=== PATIENT | male | born 1950 | race Caucasian/White ===

== ENCOUNTER 2018-04-28 10:23 | Inpatient (IN) | payer OTHER ==
[2018-04-28 10:40] VITALS: BMI 34.5
[2018-04-28] MEDS ORDERED: ASPIRIN 81 MG CHEWABLE TABLETS PO ONE (11:18)
[2018-04-28] MEDS ORDERED: dilTIAZem HCL 50 MG/10 ML - 10 ML VIAL IVPUSH ONE (11:26)
--- NOTE | 2018-04-28 11:27 | PDOC ---
History of Present Illness - General History Source: Patient Exam Limitations: No Limitations - History of Present Illness Initial Comments: 04/28/18 12:50 The patient is a 67-year-old male, with a past medical history of A-fib (on Eliquis), HTN, HLD, NIDDM, GOUT, GERD, CKD, EVANS, chronic back pain, anxiety, and depression, who presents to the ED with 1 week of left-sided chest pain and progressively worsening shortness of breath on exertion. He describes the pain as pinching in sensation, 8/10 in severity, radiating up to the right side of his neck, and accompanied by palpitations that last for 1 minute before resolving on their own. The patient visited Dr. Colon office last week and his metoprolol and diltiazem were up titrated and he was started on amiodarone. He had an echocardiogram yesterday in Dr. Colon office that showed increased RV pressure and size. Dr. Castillo advised the patient to report to the ED to rule out possible PE. The patient denies any recent travel or sick contacts. He denies any recent strenuous activity or trauma. He also reports that he experiencing nasal congestion, headache, dizziness, lower extremity swelling, and abdominal distension. The patient denies any fever, chills, cough, nausea, vomiting, diarrhea, or abdominal pain. He denies any urinary symptoms. Allergies: morphine. Social History: Former smoker (quit 15 years ago). Surgical History: Cardiac catheterization, back surgery, knee surgery. Family History: [place] (Father and Brother). PCP: Dr. Leslie Jacobsen Digital Cartographer: Dr. Castillo <Mila Davey - Last Filed: 04/28/18 12:51> - General History Source: Patient Exam Limitations: No Limitations <Laina English - Last Filed: 04/28/18 14:30> - General Chief Complaint: Chest Pain Stated Complaint: CHEST PAIN Time Seen by Provider: 04/28/18 10:47 Past History <Mila Davey - Last Filed: 04/28/18 12:51> - Past Medical History Cardiac Disorders: Yes COPD: No HTN: Yes - Suicide/Smoking/Psychosocial Hx Smoking History: Former smoker Have you smoked in the past 12 months: No If you are a former smoker, when did you quit?: 2002 Information on smoking cessation initiated: No Hx Alcohol Use: No Drug/Substance Use Hx: No <Laina English - Last Filed: 04/28/18 14:30> - Past Medical History Allergies/Adverse Reactions: Allergies Allergy/AdvReac Type Severity Reaction Status Date / Time morphine Allergy Verified 04/28/18 10:36 Home Medications: Ambulatory Orders Allopurinol 300 mg PO DAILY 04/28/18 Amiodarone HCl 200 mg PO BID 04/28/18 Apixaban [Eliquis] 5 mg PO BID 04/28/18 Atorvastatin Calcium 20 mg PO DAILY 04/28/18 Cartia Xt 180 mg PO BID 04/28/18 Desvenlafaxine Succinate [Pristiq] 50 mg PO DAILY 04/28/18 Gemfibrozil 600 mg PO BID 04/28/18 Glipizide 10 mg PO BID 04/28/18 LORazepam [Ativan] 0.5 mg PO TID 04/28/18 Metoprolol Succinate 25 mg PO DAILY 04/28/18 Pregabalin [Lyrica -] 50 mg PO BID 04/28/18 Sitagliptin Phosphate [Januvia] 50 mg PO DAILY 04/28/18 Zolpidem Tartrate [Ambien] 10 mg PO HS 04/28/18 Review of Systems - Review of Systems Able to Perform ROS?: Yes Comments:: 04/28/18 12:50 GENERAL/CONSTITUTIONAL: No fever or chills. No weakness. no sweats. HEAD, EYES, EARS, NOSE AND THROAT: (+)Nasal congestion. No change in vision or hearing. No ear pain or discharge. No sore throat or mouth pain. No difficulty swallowing. CARDIOVASCULAR: (+)chest pain, palpitations, B/L LE swelling, dizziness. No syncope. RESPIRATORY: (+)SOB. No cough, wheezing, or hemoptysis. GASTROINTESTINAL (+)Abdominal distention. No nausea/vomiting. No diarrhea or constipation. No bloody stools. GENITOURINARY: No hematuria, dysuria, frequency, urgency or other changes. MUSCULOSKELETAL: No joint swelling or pain. No neck or back pain. SKIN: No rash or changes in skin color or lesions. NEUROLOGIC: (+)Headache. No vertigo, loss of consciousness, or change in strength/sensation. No gait instability. HEMATOLOGIC/LYMPHATIC: No anemia, easy bruising/bleeding, or history of blood clots. ALLERGIC/IMMUNOLOGIC: No allergies All other systems reviewed and negative, or as documented in HPI. <Mila Davey - Last Filed: 04/28/18 12:51> *Physical Exam - Vital Signs Last Vital Signs Temp Pulse Resp BP Pulse Ox 98.5 F 117 H 20 137/84 94 L 04/28/18 10:36 04/28/18 11:20 04/28/18 11:20 04/28/18 11:20 04/28/18 11:20 - Physical Exam Comments: 04/28/18 12:50 General: Well appearing, awake and alert, NAD. HEENT: NCAT, PERRL, EOMI, clear conjunctiva, anicteric, moist mucus membranes, clear oropharynx, no oral lesions.. Neck: neck supple, FROM. No JVD. Resp: (+)Bibasilar crackles. Lungs other zhou clear, no respiratory distress. CVS: (+)Irregularly irregular. No murmurs, 2+ peripheral pulses throughout, no peripheral edema Abdomen:(+)Mild abdominal distension. Soft, NT, no peritoneal signs. Back: nontender, normal inspection and ROM MSK: (+)1+ pitting edema bilaterally. CHANDRA x4, ROM intact. No clubbing or cyanosis. normal bulk and tone. Neuro: alert, oriented appropriately; no focal neurologic deficits. Skin: warm and well perfused, cap refill <2 sec, normal color <Mila Davey - Last Filed: 04/28/18 12:51> - Vital Signs Last Vital Signs Temp Pulse Resp BP Pulse Ox 98.5 F 112 H 16 132/62 99 04/28/18 10:36 04/28/18 10:36 04/28/18 10:36 04/28/18 10:36 04/28/18 10:36 <Laina English - Last Filed: 04/28/18 14:30> Procedures - Bedside Ultrasound Bedside Ultrasound: Cardiac Remarks: 04/28/18 12:48 POCUS echo and thoracic exam by me: indication includes chest pain/dyspnea. views obtained (PSLA, PSS, A4, SX, IVC) and thoracic lung hale. Findings include normal EF, no pericardial or pleural effusion, primarily A lines, normal IVC with inspiratory collapse. Normal aortic root <4cm. RV<LV. Impression : no acute findings. <Laina English - Last Filed: 04/28/18 14:30> ED Treatment Course - LABORATORY CBC & Chemistry Diagram: 04/28/18 11:13 04/28/18 11:13 - ADDITIONAL ORDERS Additional order review: Laboratory Results 04/28/18 04/28/18 11:13 11:13 Sodium 138 Potassium 4.3 Chloride 104 Carbon Dioxide 24 Anion Gap 9 BUN 21 H Creatinine 1.3 Creat Clearance w eGFR 54.90 Random Glucose 126 H Calcium 8.7 Total Bilirubin 0.4 AST 15 ALT 17 Alkaline Phosphatase 116 Troponin I < 0.02 B-Natriuretic Peptide 894.6 H Total Protein 6.6 Albumin 3.5 TSH 6.72 H 04/28/18 11:13 RBC 4.62 MCV 88.8 MCHC 33.0 RDW 15.1 MPV 8.0 Neutrophils % 65.2 Lymphocytes % 23.0 Monocytes % 7.7 Eosinophils % 2.9 Basophils % 1.2 - Medications Given in the ED: ED Medications Discontinued Medications Generic Name Dose Route Start Last Admin Trade Name Freq PRN Reason Stop Dose Admin Aspirin 324 mg 04/28/18 11:18 04/28/18 12:21 Asa - PO 04/28/18 11:19 324 mg ONCE ONE Administration Diltiazem HCl 10 mg 04/28/18 11:26 04/28/18 12:14 Cardizem Injection - IVPUSH 04/28/18 11:27 10 mg ONCE ONE Administration <Mila Davey - Last Filed: 04/28/18 12:51> - LABORATORY CBC & Chemistry Diagram: 04/28/18 11:13 04/28/18 11:13 - RADIOLOGY Radiology Studies Ordered: Category Date Time Status CHEST PA & LAT [RAD] Stat Radiology 04/28/18 10:48 Ordered <Laina English - Last Filed: 04/28/18 14:30> Medical Decision Making - Medical Decision Making 04/28/18 12:42 Johny Donovan 67 YOM with h/o Afib on Eliquis, HTN, HLD, Gout, Gerd, NIDDM , CKD, EVANS, chronic back pain, anxiety and depression presenting with chest pain x 1 week a/w palpitations lasting several minutes and progressive SOB with mild exertion. had uptitration of BB and CCB this week, started on Amiodarone as well. Echo yesterday with normal EF and dilated RV. Vital signs reviewed, wnl. notable for Afib and RVR with rate ~112 bpm. Medical Plan: CBC, CMP, ECG, trops/card panel, BNP, CXR, CT angio chest, POCUS echo and thoracic exam Prior notes reviewed, including admissions, discharges and consultations. laboratory results and imaging reviewed, basic labs and lytes wnl, notable for neg trop, indeterminate BNP, TSH mildly elevated. EKG Afib RVR at 115 bpm. ED course: given diltiazem IV with rate control <110, ASA. trop neg, so reassuring. POCUS echo and thoracic exam by me: indication includes chest pain/dyspnea. views obtained (PSLA, PSS, A4, SX, IVC) and thoracic lung hale. Findings include normal EF, no pericardial or pleural effusion, primarily A lines, normal IVC with inspiratory collapse. Normal aortic root <4cm. RV<LV. Impression : no acute findings. spoke with Dr. Castillo with recent echo and plan. CT chest angio to r/o PE given recurrence of Afib, already on AC, but could be failing therapy. in meantime, goal of rate control of Afib RVR. also RUQ sono to r/o ascites. - CT angio neg for PE, chronic lung disease, no cardiomegaly, no effusion. Dispo: Admit to telemetry for Afib RVR, rate controlled.. Discussed results and management plan with pt and family member at bedside, agree with impression and plan spoke and s/o to Dr. Delaney carton folder for Dr. Jacobsen. 04/28/18 14:26 <Laina English - Last Filed: 04/28/18 14:30> *DC/Admit/Observation/Transfer - Attestations Scribe Attestion: 04/28/18 12:51 Documentation prepared by Mila Davey, acting as medical communication specialist for Laina English MD. <Mila Davey - Last Filed: 04/28/18 12:51> - Discharge Dispostion Decision to Admit order: Yes Decision to Admit order Date/Time: 04/28/18 12:45 Decision to Admit Order Category Date Time Status Decision to Admit to Hospital Routine Admission 04/28/18 12:41 Active - Attestations Physician Attestion: 04/28/18 14:30 I, Laina English MD, attest that this document has been prepared under my direction and personally reviewed by me in its entirety. I further attest, that it accurately reflects all work, treatment, procedures and medical decision -making performed by me. <Laina English - Last Filed: 04/28/18 14:30> Diagnosis at time of Disposition: Atrial fibrillation with RVR - Discharge Dispostion Condition at time of disposition: Guarded
[2018-04-28 11:29] LABS: BASO % 1.2 % (0-2.0); EOS % 2.9 % (0-4.5); HEMATOCRIT 41.1 % (35.4-49); HEMOGLOBIN 13.6 GM/dL (11.7-16.9); MCH 29.4 pg (25.7-33.7); MEAN CELL VOLUME 88.8 fl (80-96); MONO % 7.7 % (3.8-10.2); NEUT % 65.2 % (42.8-82.8); PLATELET COUNT 377 K/MM3 (134-434); RBC 4.62 M/mm3 (4.00-5.60); RDW 15.1 % (11.9-15.9); WHITE BLOOD COUNT 9.6 K/mm3 (4.0-10.0)
[2018-04-28] MEDS ORDERED: dilTIAZem HCL 125 MG/25 ML - 25 ML VIAL ONE (12:07)
[2018-04-28] MEDS ORDERED: ASPIRIN 81 MG CHEWABLE TABLETS ONE (12:07)
[2018-04-28 12:27] LABS: ALBUMIN 3.5 g/dl (3.4-5.0); ALK PHOS 116 U/L (45-117); ANION GAP 9 MMOL/L (8-16); BILIRUBIN,TOTAL 0.4 mg/dL (0.2-1); BLOOD UREA NITROGEN 21 mg/dL (7-18); CALCIUM 8.7 mg/dL (8.5-10.1); CHLORIDE 104 mmol/L (98-107); CO2 24 mmol/L (21-32); CREATININE 1.3 mg/dL (0.55-1.3); GLUCOSE,RANDOM 126 mg/dL (74-106); POTASSIUM 4.3 mmol/L (3.5-5.1); SGOT/AST 15 U/L (15-37); SGPT/ALT 17 U/L (13-61); SODIUM 138 mmol/L (136-145); TOT PROT 6.6 g/dl (6.4-8.2)
[2018-04-28] MEDS ORDERED: LORazepam 0.5 MG TABLET PO PRN (12:44)
--- NOTE | 2018-04-28 13:15 | HP ---
Admitting History and Physical - Primary Care Physician PCP: Leslie Jacobsen - Admission Chief Complaint: Rapid afib History of Present Illness: er history 04/28/18 12:50 The patient is a 67-year-old male, with a past medical history of A-fib (on Eliquis), HTN, HLD, NIDDM, GOUT, GERD, CKD, EVANS, chronic back pain, anxiety, and depression, who presents to the ED with 1 week of left-sided chest pain and progressively worsening shortness of breath on exertion. He describes the pain as pinching in sensation, 8/10 in severity, radiating up to the right side of his neck, and accompanied by palpitations that last for 1 minute before resolving on their own. The patient visited Dr. Colon office last week and his metoprolol and diltiazem were up titrated and he was started on amiodarone. He had an echocardiogram yesterday in Dr. Colon office that showed increased RV pressure and size. Dr. Castillo advised the patient to report to the ED to rule out possible PE. The patient denies any recent travel or sick contacts. He denies any recent strenuous activity or trauma. He also reports that he experiencing nasal congestion, headache, dizziness, lower extremity swelling, and abdominal distension. The patient denies any fever, chills, cough, nausea, vomiting, diarrhea, or abdominal pain. He denies any urinary symptoms. pt examined Sent for rapid Afib Was being managed by Financial Analysis Advisor for controlling rate. Received cardizmem iv push in ER abd metoprolol History Source: Patient - Past Medical History Cardiovascular: Yes: AFIB, HTN, Hyperlipdemia Endocrine: Yes: Diabetes Mellitus - Smoking History Smoking history: Former smoker Have you smoked in the past 12 months: No If you are a former smoker, when did you quit?: 2002 - Alcohol/Substance Use Hx Alcohol Use: No Home Medications - Allergies Allergies/Adverse Reactions: Allergies Allergy/AdvReac Type Severity Reaction Status Date / Time morphine Allergy Verified 04/28/18 10:36 - Home Medications Home Medications: Ambulatory Orders Allopurinol 300 mg PO DAILY 04/28/18 Amiodarone HCl 200 mg PO BID 04/28/18 Apixaban [Eliquis] 5 mg PO BID 04/28/18 Atorvastatin Calcium 20 mg PO DAILY 04/28/18 Cartia Xt 180 mg PO BID 04/28/18 Desvenlafaxine Succinate [Pristiq] 50 mg PO DAILY 04/28/18 Gemfibrozil 600 mg PO BID 04/28/18 Glipizide 10 mg PO BID 04/28/18 LORazepam [Ativan] 0.5 mg PO TID 04/28/18 Metoprolol Succinate 25 mg PO DAILY 04/28/18 Pregabalin [Lyrica -] 50 mg PO BID 04/28/18 Sitagliptin Phosphate [Januvia] 50 mg PO DAILY 04/28/18 Zolpidem Tartrate [Ambien] 10 mg PO HS 04/28/18 Review of Systems - Review of Systems Constitutional: denies: Chills, Fever Cardiovascular: reports: Chest Pain, Palpitations Physical Examination Vital Signs: Vital Signs Temperature 98.5 F 04/28/18 10:36 Pulse Rate 117 H 04/28/18 11:20 Respiratory Rate 20 04/28/18 11:20 Blood Pressure 137/84 04/28/18 11:20 O2 Sat by Pulse Oximetry (%) 94 L 04/28/18 11:20 Constitutional: Yes: No Distress, Calm Cardiovascular: Yes: Pulse Irregular Respiratory: Yes: Diminished Gastrointestinal: Yes: Normal Bowel Sounds, Soft. No: Tenderness Edema: No Neurological: Yes: WNL Labs: CBC, BMP 04/28/18 11:13 04/28/18 11:13 Imaging - Results Chest X-ray: Image Reviewed (no infiltrate) EKG: Image Reviewed (Rapid Afib) Problem List - Problems (1) Atrial fibrillation with RVR Code(s): I48.91 - UNSPECIFIED ATRIAL FIBRILLATION (2) Diabetes mellitus Code(s): E11.9 - TYPE 2 DIABETES MELLITUS WITHOUT COMPLICATIONS (3) HTN (hypertension) Code(s): I10 - ESSENTIAL (PRIMARY) HYPERTENSION (4) Hyperlipidemia Code(s): E78.5 - HYPERLIPIDEMIA, UNSPECIFIED Assessment/Plan PLAN Admit to Telemetry Rate to be controlled with Lopressor and cardizem\ CTA chest done-- results pending Cardiology eval continue with meds check BGM Pt is on Eliquis for Afib
--- NOTE | 2018-04-28 13:21 | EKG ---
Test Reason : Blood Pressure : / mmHG Vent. Rate : 110 BPM Atrial Rate : 150 BPM P-R Int : 000 ms QRS Dur : 086 ms QT Int : 302 ms P-R-T Axes : 000 024 114 degrees QTc Int : 408 ms ATRIAL FIBRILLATION WITH RAPID VENTRICULAR RESPONSE NONSPECIFIC ST AND T WAVE ABNORMALITY ABNORMAL ECG WHEN COMPARED WITH ECG OF 12-AUG-2004 15:01, ATRIAL FIBRILLATION HAS REPLACED SINUS RHYTHM NONSPECIFIC T WAVE ABNORMALITY NOW EVIDENT IN ANTERIOR LEADS Confirmed by TRAN VIZCAINO, LANEY ([id number]) on 04/28/2018 1:21:19 PM Referred By: Confirmed By:LANEY MAYFIELD MD
[2018-04-28 14:10] LABS: ACANTHOCYTES 0; ANISOCYTOSIS 0; HELMET CELLS 0; HOWELL-JOLLY BODIES 0; MACROCYTOSIS 0; OVALOCYTE 0; PLATELET ESTIMATE NORMAL; ROULEAU 0; SICKELED CELLS 0; TARGET CELLS 0; TEAR DROP CELLS 0; TOXIC GRANULATION 0
--- NOTE | 2018-04-28 14:42 | CON.CARD ---
Consult Consult Specialty:: cardiology Referred by:: Tere Delaney - History of Present Illness History of Present Illness: 67 year old male with history of NIDDM, hypertension, HCVD, dyslipidemia, chest pain syndrome, recent onset of atrial fibrillation with rapid ventricular response, hyperuracemia, obstructive sleep apnea syndrome, awaiting titration study and gastroesophageal reflux disease. Patient was seen in the office on 04/27/18 and complained of increasing exertional dyspnea walking short distances, climbing a flight of stairs. No history of PND or orthopnea. Dyspnea was at times accompanied by lightheadedness , no history of presyncope or syncope. Recent episode of exertional of chest tightness relieved by sublingual nitroglycerin. No history of recent cough or expectoration. Patient continued to have a rapid ventricular response and was advised to come to the ER for further evaluation. PAST HISTORY: 1. As per history of present illness. SURGICAL HISTORY: 1. Status post tonsillectomy. 2. Status post bilateral cateract extraction. 3. Status post surgery on the right knee. 4. Status post back surgery. SOCIAL HISTORY: , disabled, has two daughters and three step children. FAMILY HISTORY: Father in late 50s of a myocardial infarction. Mother in her 50s of a brain tumor. Had three brothers, all of them are . ALLERGIES: 1. Morphine (urticaria) Active Medications Allopurinol (Zyloprim -) 300 mg PO DAILY [facility] Amiodarone HCl (Cordarone -) 200 mg PO BID [facility] Apixaban (Eliquis -) 5 mg PO BID [facility] Atorvastatin Calcium (Lipitor -) 20 mg PO HS [facility] Diltiazem HCl (Cardizem Cd -) 180 mg PO BID [facility] Gemfibrozil (Lopid -) 600 mg PO BIDI [facility] Insulin Aspart (Novolog Vial Sliding Scale -) 1 vial SQ TIDAC [facility]; Protocol Lorazepam (Ativan -) 0.5 mg PO TID PRN PRN Reason: ANXIETY Metoprolol Succinate (Toprol Xl -) 25 mg PO DAILY [facility] Pregabalin (Lyrica -) 50 mg PO BID [facility] Zolpidem Tartrate (Ambien -) 5 mg PO HS PRN REVIEW OF SYSTEMS: Constitutional: No history of chills, fever, or night sweats reported. No history of unintentional weight loss. HEENT: No history of headaches, diplopia, blurred vision. No history of epistaxis, hoarseness, vertigo, tinnitus, or deafness. Cardiovascular: See HPI. Respiratory: See HPI. Gastrointestinal: No history o nausea, vomiting, melena or hematemesis. No history of abdominal pain or discomfort. No history of change in bowel habits. Neurological: No history of seizures, syncope, focal weakness. No history of lightheadedness or dizziness. No history of paresthesias. Endocrine: No history of intolerance to cold or warm weather. No history of polyuria or polydipsia. Musculoskeletal: No known history of myalgias or arthralgias. : BPH, history of nocturia. Hematological: No history of anemia, bleeding or ecchymosis. Lymphatics: No history of lymphadenopathy or masses. 67 year old male was in no acute distress. No pallor, cyanosis, clubbing, or jaundice. Last Vital Signs Temp Pulse Resp BP Pulse Ox 98.5 F 101 H 18 133/86 100 04/28/18 10:36 04/28/18 13:00 04/28/18 13:00 04/28/18 13:00 04/28/18 13:00 NECK: Supple, no JVD, negative HJR, carotids were equal and upstrokes were normal, no thyromegaly appreciated. HEART: PMI was in the 5th intercostal space, no heaves or thrills, distant heart sounds. No murmurs or gallops were appreciated. LUNGS: Clear on auscultation bilaterally. ABDOMEN: Soft, nontender, no hepatosplenomegaly appreciated, and no palpable masses were felt. EXTREMITIES: No calf tenderness or dependent edema. Pulses are normal. EKG IMPRESSION: Dated 04/28/18 10:52 Atrial fibrillation with rapid ventricular response, slow R wave progression V1- V3, low voltage in limb leads, non-specific ST and T wave abnormalities. CBC, BMP 04/28/18 11:13 04/28/18 11:13 Laboratory Results - last 24 hr 04/28/18 04/28/18 04/28/18 11:13 11:13 11:13 WBC 9.6 RBC 4.62 Hgb 13.6 Hct 41.1 MCV 88.8 MCH 29.4 MCHC 33.0 RDW 15.1 Plt Count 377 MPV 8.0 Absolute Neuts (auto) 6.3 Neutrophils % 65.2 Neutrophils % (Manual) 68.4 Band Neutrophils % 2.0 Lymphocytes % 23.0 Lymphocytes % (Manual) 16.3 Monocytes % 7.7 Monocytes % (Manual) 7 Eosinophils % 2.9 Eosinophils % (Manual) 2.0 Basophils % 1.2 Basophils % (Manual) 1.0 Myelocytes % (Man) 0 Promyelocytes % (Man) 0 Blast Cells % (Manual) 0 Nucleated RBC % 0 Metamyelocytes 0 Hypochromia 0 Toxic Granulation 0 Dohle Bodies 0 Platelet Estimate Normal Polychromasia 0 Poikilocytosis 0 Basophilic Stippling 0 Anisocytosis 0 Microcytosis 0 Macrocytosis 0 Spherocytes 0 Sickle Cells 0 Target Cells 0 Tear Drop Cells 0 Ovalocytes 0 Stomatocytes 0 Helmet Cells 0 [place] Bodies 0 [place] Rings 0 Whitestone Cells 0 Acanthocytes (Spur) 0 Rouleaux 0 Fragmented RBCs 0 Schistocytes 0 Sodium 138 Potassium 4.3 Chloride 104 Carbon Dioxide 24 Anion Gap 9 BUN 21 H Creatinine 1.3 Creat Clearance w eGFR 54.90 Random Glucose 126 H Calcium 8.7 Total Bilirubin 0.4 AST 15 ALT 17 Alkaline Phosphatase 116 Troponin I < 0.02 B-Natriuretic Peptide 894.6 H Total Protein 6.6 Albumin 3.[address] of the Chest: 04/28/18 14:18 No evidence of pulmonary embolism. Mild chronic lung disease with no acute pathology within the chest. Impression: 1. Recent onset of atrial fibrillation with rapid ventricular response. 2. Exertional dyspnea related to rate related LV failure and/or exacerbation of chronic lung disease. 3. Chest pain syndrome compatible with angina pectoris possibly precipitated by rapid heart rate. 4. Hypertension. HCVD. 5. NIDDM. 6. History of peripheral neuropathy. 7. Hypercholesterolemia. 8. History of depression. 9. GERD. 10. Obstructive sleep apnea syndrome. 11. Elevated TSH. Recommendations: 1. Dose of metoprolol can be increased further for rate control. 2. Add furosemide initially 40 mg in view of clinical presentation compatible with LV failure. 3. Continue all other cardiac medications. 4. T3 and T4. 5. Echocardiogram. 6. Further suggestion with depend upon the above mentioned tests. Prognosis: Guarded. Thank you. Shahid. Farrukh Lovell Documentation prepared by Jaclyn Ulloa, acting as a manager medical affairs for Rustam Castillo MD. - Alcohol/Substance Use Hx Alcohol Use: No - Smoking History Smoking history: Former smoker Have you smoked in the past 12 months: No If you are a former smoker, when did you quit?: 2002 Home Medications - Allergies Allergies/Adverse Reactions: Allergies Allergy/AdvReac Type Severity Reaction Status Date / Time morphine Allergy Verified 04/28/18 10:36 - Home Medications Home Medications: Ambulatory Orders Allopurinol 300 mg PO DAILY 04/28/18 Amiodarone HCl 200 mg PO BID 04/28/18 Apixaban [Eliquis] 5 mg PO BID 04/28/18 Atorvastatin Calcium 20 mg PO DAILY 04/28/18 Cartia Xt 180 mg PO BID 04/28/18 Desvenlafaxine Succinate [Pristiq] 50 mg PO DAILY 04/28/18 Gemfibrozil 600 mg PO BID 04/28/18 Glipizide 10 mg PO BID 04/28/18 LORazepam [Ativan] 0.5 mg PO TID 04/28/18 Metoprolol Succinate 25 mg PO DAILY 04/28/18 Pregabalin [Lyrica -] 50 mg PO BID 04/28/18 Sitagliptin Phosphate [Januvia] 50 mg PO DAILY 04/28/18 Zolpidem Tartrate [Ambien] 10 mg PO HS 04/28/18 Vital Signs: Vital Signs Temperature 98.5 F 04/28/18 10:36 Pulse Rate 101 H 04/28/18 13:00 Respiratory Rate 18 04/28/18 13:00 Blood Pressure 133/86 04/28/18 13:00 O2 Sat by Pulse Oximetry (%) 100 04/28/18 13:00 - Other Data Labs, Other Data: CBC, BMP 04/28/18 11:13 04/28/18 11:13 Troponin, BNP 04/28/18 04/28/18 11:13 11:13 Troponin I < 0.02 B-Natriuretic Peptide 894.6 H Troponin, BNP 04/28/18 04/28/18 11:13 11:13 Troponin I < 0.02 B-Natriuretic Peptide 894.6 H
--- NOTE | 2018-04-28 17:24 | ECHO ---
Name: MIKI GARCIA Exam:Adult Echocardiogram Study Date: 04/28/2018 03:41 PM Age: 67 yrs Reason For Study: sob and a fib Height: 71 in Weight: 248 lb BSA: 2.3 m2 MMode/2D Measurements & Calculations IVSd: 0.87 cm Ao root diam: 3.3 cm LVIDd: 5.7 cm LA dimension: 4.7 cm LVIDs: 4.0 cm ACS: 2.0 cm LVPWd: 0.85 cm IVSs: 0.91 cm LVPWs: 1.00 cm EDV(Teich): 159.4 ml ESV(Teich): 70.7 ml Doppler Measurements & Calculations AI P1/2t: 413.2 msec AI max svitlana: 427.7 cm/sec AI max P.3 mmHg AI dec slope: 303.1 cm/sec2 AI Accel Time: 0.36 sec MR max svitlana: 443.1 cm/sec MR max P.6 mmHg TR max svitlana: 198.9 cm/sec Med Peak E' Svitlana: 8.1 cm/sec TR max P.9 mmHg Lat Peak E' Svitlana: 6.9 cm/sec Procedure A two-dimensional transthoracic echocardiogram with color flow and Doppler was performed. Left Ventricle The left ventricular size, thickness and function are normal. The left ventricular ejection fraction is normal. The left ventricular wall motion is normal. Right Ventricle The right ventricle is normal in size and function. Atria The left atrium is moderately dilated. The right atrium is moderately dilated. The atrial septum is aneurysmal. Mitral Valve There is mild mitral valve thickening. There is no mitral valve stenosis. There is mild mitral regurg itation. Aortic Valve The aortic valve is not well visualized. No hemodynamically significant valvular aortic stenosis. Mil d aortic regurgitation. Interpretation Summary The left ventricular size, thickness and function are normal The left ventricular ejection fraction is normal. The left ventricular wall motion is normal. There is mild mitral regurgitation. Mild aortic regurgitation. The left atrium is moderately dilated. The right atrium is moderately dilated. The atrial septum is aneurysmal. MD Jose Armando Vo 04/28/2018 05:24 PM
[2018-04-28] MEDS: INSULIN SLIDING SCALE (NOVOLOG) 1 VIAL SQ SCH (17:31)
[2018-04-28] MEDS ORDERED: FLU VACCINE QUAD 60 MCG/0.5 ML (MDV 18-19) IM ONE (18:30)
[2018-04-28] MEDS: APIXABAN 5 MG TABLET PO SCH (21:41)
[2018-04-28] MEDS: ATORVASTATIN CA 20 MG TABLET (FP) PO SCH (21:41)
[2018-04-28] MEDS: AMIODARONE HCL 200 MG TABLET (FP) PO SCH (21:41)
[2018-04-28] MEDS: PREGABALIN 50 MG CAPSULE PO SCH (21:41)
[2018-04-28] MEDS: GEMFIBROZIL 600 MG TABLET (FP) PO SCH (22:00)
[2018-04-28] MEDS: ZOLPIDEM TARTRATE 5 MG TABLET PO PRN (23:10)
[2018-04-28] MEDS ORDERED: NITROGLYCERIN SUBLINGUAL 1/150 0.4 MG TAB ONE (23:44)
[2018-04-28] MEDS ORDERED: NITROGLYCERIN SUBLINGUAL 1/150 0.4 MG TAB SL ONE (23:44)
[2018-04-29] MEDS ORDERED: metoPROLOL SUCCINATE 25 MG TAB.SR.24H (FP) PO ONE (00:50)
[2018-04-29] MEDS: GEMFIBROZIL 600 MG TABLET (FP) PO SCH ×2 (06:10→16:58)
[2018-04-29] MEDS: INSULIN SLIDING SCALE (NOVOLOG) 1 VIAL SQ SCH ×3 (06:12→16:58)
--- NOTE | 2018-04-29 09:34 | EKG ---
Test Reason : Blood Pressure : / mmHG Vent. Rate : 120 BPM Atrial Rate : 312 BPM P-R Int : 000 ms QRS Dur : 088 ms QT Int : 342 ms P-R-T Axes : 000 010 178 degrees QTc Int : 483 ms ATRIAL FIBRILLATION WITH RAPID VENTRICULAR RESPONSE NONSPECIFIC ST AND T WAVE ABNORMALITY ABNORMAL ECG WHEN COMPARED WITH ECG OF 28-APR-2018 10:52, NONSPECIFIC T WAVE ABNORMALITY, WORSE IN INFERIOR LEADS Confirmed by EZEQUIEL VIZCAINO, TREVOR ([id number]) on 04/29/2018 9:34:09 AM Referred By: CHRISTINE Confirmed By:TREVOR NIEVES MD
[2018-04-29] MEDS ORDERED: metoPROLOL SUCCINATE 25 MG TAB.SR.24H (FP) PO SCH (10:00)
[2018-04-29] MEDS: ALLOPURINOL 300 MG TABLET (FP) PO SCH (11:00)
[2018-04-29] MEDS: metoPROLOL SUCCINATE 25 MG TAB.SR.24H (FP) PO SCH ×2 (11:00→21:59)
[2018-04-29] MEDS: AMIODARONE HCL 200 MG TABLET (FP) PO SCH ×2 (11:00→21:59)
[2018-04-29] MEDS: PREGABALIN 50 MG CAPSULE PO SCH ×2 (11:00→21:58)
[2018-04-29] MEDS: APIXABAN 5 MG TABLET PO SCH ×2 (11:01→21:58)
--- NOTE | 2018-04-29 12:50 | CON.PULM ---
Consult Consult Specialty:: PULMONARY Referred by:: Dr. 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 Noted to have increased RV pressures on the echo in the office, sent for CTA chest which did not show any evidence of pulmonary emboli. Noted to have irregular rapid rates, now on telemetry for further monitoring. Denies any history of asthma or COPD. He does not have a chronic cough but does hear wheezing occasionally. He is a former smoker, started at age 11, smoked on average 2 PPD before quitting 15 years ago. Does not use any inhalers at home. 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 - History Source History Provided By: Patient, Medical Record Limitations to Obtaining History: No Limitations - Past Medical History Cardio/Vascular: Yes: AFIB, HTN, Hyperlipdemia Endocrine: Yes: Diabetes Mellitus - Alcohol/Substance Use Hx Alcohol Use: No - Smoking History Smoking history: Former smoker Have you smoked in the past 12 months: No If you are a former smoker, when did you quit?: 2002 Home Medications - Allergies Allergies/Adverse Reactions: Allergies Allergy/AdvReac Type Severity Reaction Status Date / Time morphine Allergy Verified 04/28/18 10:36 - Home Medications Home Medications: Ambulatory Orders Allopurinol 300 mg PO DAILY 04/28/18 Amiodarone HCl 200 mg PO BID 04/28/18 Apixaban [Eliquis] 5 mg PO BID 04/28/18 Atorvastatin Calcium 20 mg PO DAILY 04/28/18 Cartia Xt 180 mg PO BID 04/28/18 Desvenlafaxine Succinate [Pristiq] 50 mg PO DAILY 04/28/18 Gemfibrozil 600 mg PO BID 04/28/18 Glipizide 10 mg PO BID 04/28/18 LORazepam [Ativan] 0.5 mg PO TID 04/28/18 Metoprolol Succinate 25 mg PO DAILY 04/28/18 Pregabalin [Lyrica -] 50 mg PO BID 04/28/18 Sitagliptin Phosphate [Januvia] 50 mg PO DAILY 04/28/18 Zolpidem Tartrate [Ambien] 10 mg PO HS 04/28/18 Review of Systems - Review of Systems Constitutional: reports: Weakness. denies: Chills, Fever Eyes: denies: Recent Change in Vision HENT: denies: Nasal Congestion, Throat Pain Neck: denies: Stiffness, Tenderness Cardiovascular: reports: Chest Pain, Shortness of Breath Respiratory: reports: SOB on Exertion, Wheezing. denies: Cough, Hemoptysis Gastrointestinal: denies: Abdominal Pain, Nausea, Vomiting Genitourinary: denies: Dysuria, Hematuria Neurological: denies: Dizziness, Headache Endocrine: denies: Unexplained Weight Loss Physical Exam Vital Sings: Vital Signs Temperature 98.1 F 04/29/18 09:00 Pulse Rate 114 H 04/29/18 09:00 Respiratory Rate 20 04/29/18 09:00 Blood Pressure 121/73 04/29/18 09:00 O2 Sat by Pulse Oximetry (%) 100 04/29/18 09:00 Constitutional: Yes: Calm Eyes: Yes: Conjunctiva Clear, EOM Intact HENT: Yes: Atraumatic, Normocephalic Neck: Yes: Supple, Trachea Midline Cardiovascular: Yes: Pulse Irregular Respiratory: Yes: Diminished (distant breath sounds) ...Clubbing: No Gastrointestinal: Yes: Normal Bowel Sounds, Soft. No: Tenderness Edema: No Neurological: Yes: Alert, Oriented Labs: CBC, BMP 04/28/18 11:13 04/28/18 11:13 Imaging - Results Chest X-ray: Report Reviewed, Image Reviewed Cat Scan: Report Reviewed, Image Reviewed (RLL nodule) Problem List - Problems (1) Atrial fibrillation with RVR Code(s): I48.91 - UNSPECIFIED ATRIAL FIBRILLATION (2) Lung nodule Code(s): R91.1 - SOLITARY PULMONARY NODULE (3) HTN (hypertension) Code(s): I10 - ESSENTIAL (PRIMARY) HYPERTENSION (4) Diabetes mellitus Code(s): E11.9 - TYPE 2 DIABETES MELLITUS WITHOUT COMPLICATIONS (5) Hyperlipidemia Code(s): E78.5 - HYPERLIPIDEMIA, UNSPECIFIED (6) Obstructive sleep apnea Code(s): G47.33 - OBSTRUCTIVE SLEEP APNEA (ADULT) (PEDIATRIC) Assessment/Plan Atrial Fibrillation with RVR r/o COPD Lung Nodule Obstructive Sleep Apnea HTN DM Hyperlipidemia - rate control per cardiology - continue anticoagulation - will start inhaled bronchodilators - if no improvement, can consider short course of steroids - O2 to keep SpO2 >90% - CPAP at night - will need outpt f/u of lung nodule - outpt PFTs, follows with Dr. Gutierrez Thank you for this consult Davide Jones MD
--- NOTE | 2018-04-29 13:47 | PN ---
Progress Note (short form) - Note Progress Note: Vital Signs - 24 hr 04/28/18 04/28/18 04/28/18 16:00 17:36 17:51 Temperature 97.8 F 97.8 F Pulse Rate 108 H 112 H Pulse Rate [ 98 H Left Radial] Respiratory 18 18 Rate Blood Pressure 122/72 Blood Pressure 115/84 [Right Arm] O2 Sat by Pulse 100 100 Oximetry (%) 04/28/18 04/29/18 04/29/18 19:50 01:27 05:00 Temperature 98.0 F 98.1 F 98.1 F Pulse Rate 107 H 114 H 107 H Pulse Rate [ Left Radial] Respiratory 18 18 18 Rate Blood Pressure 137/86 126/79 136/78 Blood Pressure [Right Arm] O2 Sat by Pulse 100 Oximetry (%) 04/29/18 09:00 Temperature 98.1 F Pulse Rate 114 H Pulse Rate [ Left Radial] Respiratory 20 Rate Blood Pressure 121/73 Blood Pressure [Right Arm] O2 Sat by Pulse 100 Oximetry (%) Current Medications Generic Name Dose Route Start Last Admin Trade Name Freq PRN Reason Stop Dose Admin Albuterol/Ipratropium 1 amp 04/29/18 14:00 Duoneb - NEB RTID [facility] Allopurinol 300 mg 04/29/18 10:00 04/29/18 11:00 Zyloprim - PO 300 mg DAILY [facility] Administration Amiodarone HCl 200 mg 04/28/18 22:00 04/29/18 11:00 Cordarone - PO 200 mg BID [facility] Administration Apixaban 5 mg 04/28/18 22:00 04/29/18 11:01 Eliquis - PO 5 mg BID [facility] Administration Atorvastatin Calcium 20 mg 04/28/18 22:00 04/28/18 21:41 Lipitor - PO 20 mg HS [facility] Administration Diltiazem HCl 180 mg 04/28/18 22:00 04/29/18 11:00 Cardizem Cd - PO 180 mg BID [facility] Administration Gemfibrozil 600 mg 04/28/18 16:30 04/29/18 06:10 Lopid - PO 600 mg BIDI [facility] Administration Insulin Aspart 1 vial 04/28/18 16:30 04/29/18 13:36 Novolog Vial Sliding Scale - SQ Not Given TIDAC [facility] Protocol Lorazepam 0.5 mg 04/28/18 12:44 Ativan - PO TID PRN ANXIETY Metoprolol Succinate 25 mg 04/29/18 10:00 04/29/18 11:00 Toprol Xl - PO 25 mg BID [facility] Administration Pregabalin 50 mg 04/28/18 22:00 04/29/18 11:00 Lyrica - PO 50 mg BID [facility] Administration Zolpidem Tartrate 5 mg 04/28/18 13:03 04/28/18 23:10 Ambien - PO 5 mg HS PRN Administration Laboratory Results - last 24 hr 04/28/18 04/28/18 04/28/18 11:13 15:50 17:29 Neutrophils % (Manual) 68.4 Band Neutrophils % 2.0 Lymphocytes % (Manual) 16.3 Monocytes % (Manual) 7 Eosinophils % (Manual) 2.0 Basophils % (Manual) 1.0 Myelocytes % (Man) 0 Promyelocytes % (Man) 0 Blast Cells % (Manual) 0 Metamyelocytes 0 Hypochromia 0 Toxic Granulation 0 Dohle Bodies 0 Platelet Estimate Normal Polychromasia 0 Poikilocytosis 0 Basophilic Stippling 0 Anisocytosis 0 Microcytosis 0 Macrocytosis 0 Spherocytes 0 Sickle Cells 0 Target Cells 0 Tear Drop Cells 0 Ovalocytes 0 Stomatocytes 0 Helmet Cells 0 [place] Bodies 0 [employer] Rings 0 Hollister Cells 0 Acanthocytes (Spur) 0 Rouleaux 0 Fragmented RBCs 0 Schistocytes 0 POC Glucometer 131 Creatine Kinase 46 Troponin I < 0.02 Free T4 1.20 H 04/28/18 04/28/18 04/29/18 18:27 21:45 00:31 Neutrophils % (Manual) Band Neutrophils % Lymphocytes % (Manual) Monocytes % (Manual) Eosinophils % (Manual) Basophils % (Manual) Myelocytes % (Man) Promyelocytes % (Man) Blast Cells % (Manual) Metamyelocytes Hypochromia Toxic Granulation Dohle Bodies Platelet Estimate Polychromasia Poikilocytosis Basophilic Stippling Anisocytosis Microcytosis Macrocytosis Spherocytes Sickle Cells Target Cells Tear Drop Cells Ovalocytes Stomatocytes Helmet Cells [place] Bodies [employer] Rings Sheeba Cells Acanthocytes (Spur) Rouleaux Fragmented RBCs Schistocytes POC Glucometer Creatine Kinase 46 46 46 Troponin I < 0.02 < 0.02 < 0.02 Free T4 04/29/18 04/29/18 04/29/18 05:30 06:11 11:12 Neutrophils % (Manual) Band Neutrophils % Lymphocytes % (Manual) Monocytes % (Manual) Eosinophils % (Manual) Basophils % (Manual) Myelocytes % (Man) Promyelocytes % (Man) Blast Cells % (Manual) Metamyelocytes Hypochromia Toxic Granulation Dohle Bodies Platelet Estimate Polychromasia Poikilocytosis Basophilic Stippling Anisocytosis Microcytosis Macrocytosis Spherocytes Sickle Cells Target Cells Tear Drop Cells Ovalocytes Stomatocytes Helmet Cells [place] Bodies [employer] Rings Hollister Cells Acanthocytes (Spur) Rouleaux Fragmented RBCs Schistocytes POC Glucometer 131 159 Creatine Kinase 39 Troponin I < 0.02 Free T4
[2018-04-29] MEDS: ALBUTEROL SO4 2.5/IPRATROPIUM 0.5 INH SOL 3 ML VIAL.NEB. NEB SCH ×2 (14:45→21:15)
[2018-04-29] MEDS ORDERED: PT OWN MED DRAWER 7, Y5N ONE (16:56)
[2018-04-29] MEDS: glipiZIDE 10 MG TABLET (FP) PO SCH (16:58)
--- NOTE | 2018-04-29 18:26 | PN ---
Progress Note (short form) - Note Progress Note: 67 year old male admitted with new onset atrial fib. with rapid ventricular response and exertioal dyspnea, NIDDM, peripheral neuropathy. hypertion/HCVD, OSAS, dyslipidemia. Patient is less dyspneic, no chest pain or discomfort, no palpitations reported. Active Medications Albuterol/Ipratropium (Duoneb -) 1 amp NEB RTID [facility] Last Admin: 04/29/18 14:45 Dose: 1 amp Allopurinol (Zyloprim -) 300 mg PO DAILY [facility] Last Admin: 04/29/18 11:00 Dose: 300 mg Amiodarone HCl (Cordarone -) 200 mg PO BID [facility] Last Admin: 04/29/18 11:00 Dose: 200 mg Apixaban (Eliquis -) 5 mg PO BID [facility] Last Admin: 04/29/18 11:01 Dose: 5 mg Atorvastatin Calcium (Lipitor -) 20 mg PO HS [facility] Last Admin: 04/28/18 21:41 Dose: 20 mg Diltiazem HCl (Cardizem Cd -) 180 mg PO BID [facility] Last Admin: 04/29/18 11:00 Dose: 180 mg Gemfibrozil (Lopid -) 600 mg PO BIDI [facility] Last Admin: 04/29/18 16:58 Dose: 600 mg Glipizide (Glucotrol -) 10 mg PO BIDI [facility] Last Admin: 04/29/18 16:58 Dose: 10 mg Insulin Aspart (Novolog Vial Sliding Scale -) 1 vial SQ TIDAC [facility]; Protocol Last Admin: 04/29/18 16:58 Dose: Not Given Lorazepam (Ativan -) 0.5 mg PO TID PRN PRN Reason: ANXIETY Metoprolol Succinate (Toprol Xl -) 25 mg PO BID [facility] Last Admin: 04/29/18 11:00 Dose: 25 mg Pregabalin (Lyrica -) 50 mg PO BID [facility] Last Admin: 04/29/18 11:00 Dose: 50 mg Sitagliptin Phosphate (Januvia -) 50 mg PO AM [facility] Zolpidem Tartrate (Ambien -) 5 mg PO HS PRN Last Admin: 04/28/18 23:10 Dose: 5 mg Last Vital Signs Temp Pulse Resp BP Pulse Ox 98.4 F 93 irregular 20 128/56 L 100 04/29/18 14:00 04/29/18 14:00 04/29/18 14:00 04/29/18 14:00 04/29/18 09:00 NECK: Supple, noJVD, carotids 2+ HEART: PMI in the 5th space, no heaves or thrills.Heart sounds are distant.No murmur or gallops heard. LUNGS: Clear on auscultation. ABDOMEN: Soft, obese, no organomegaly or palpable masses. dullness on percussion at the flanks. EXTREMETIES: No calf tenderness or dependent edema. CBC, BMP 04/28/18 11:13 04/28/18 11:13 Myocardial perfusion Imaging (Lexiscan) out patient 09/01/17 Interpretation summary: Normal Lexiscan myocardial perfusion stress test. IMPRESSION: 1. Paroxysmal atrial fib. with rapid ventricular response. 2. Chest pain syndrome, possibly related to rapid ventricular response( demand ischemia). 3. Hypertension. 4. NIDDM. 5. COPD 6. Ascitis needs exclusion. Recommendations: 1. Pulmonary evaluation. 2. Abdominal ultrasound. 3. PFTs. 4. Current cardiac therapy.
[2018-04-29] MEDS: ATORVASTATIN CA 20 MG TABLET (FP) PO SCH (21:58)
[2018-04-30] MEDS: ZOLPIDEM TARTRATE 5 MG TABLET PO PRN (01:14)
[2018-04-30] MEDS: GEMFIBROZIL 600 MG TABLET (FP) PO SCH (06:09)
[2018-04-30] MEDS: glipiZIDE 10 MG TABLET (FP) PO SCH (06:10)
[2018-04-30] MEDS: INSULIN SLIDING SCALE (NOVOLOG) 1 VIAL SQ SCH ×2 (06:15→15:25)
[2018-04-30] MEDS ORDERED: sitaGLIPtin PHOSPHATE 50 MG TABLET PO SCH (07:00)
[2018-04-30] MEDS: ALBUTEROL SO4 2.5/IPRATROPIUM 0.5 INH SOL 3 ML VIAL.NEB. NEB SCH ×2 (07:52→14:51)
[2018-04-30] MEDS ORDERED: PT OWN MED DRAWER 7, Y5N ONE (08:39)
[2018-04-30] MEDS: PREGABALIN 50 MG CAPSULE PO SCH (10:29)
[2018-04-30] MEDS: ALLOPURINOL 300 MG TABLET (FP) PO SCH (10:29)
[2018-04-30] MEDS: AMIODARONE HCL 200 MG TABLET (FP) PO SCH (10:29)
[2018-04-30] MEDS: APIXABAN 5 MG TABLET PO SCH (10:30)
[2018-04-30] MEDS: metoPROLOL SUCCINATE 25 MG TAB.SR.24H (FP) PO SCH (10:30)
--- NOTE | 2018-04-30 11:23 | PN ---
Progress Note (short form) - Note Progress Note: feels well no complains. at bedside says feels much better Vital Signs Temp 98.1 F 04/30/18 05:00 Pulse 92 H 04/30/18 05:00 Resp 18 04/30/18 08:33 BP 118/61 04/30/18 05:00 Pulse Ox 100 04/30/18 08:33 Intake & Output 04/29/18 04/29/18 04/30/18 11:59 23:59 11:59 Intake Total 480 Balance 480 Weight 242 lb 9.6 oz Intake: Oral 480 Other: Voiding Method Toilet Toilet Toilet # Unmeasured Voids Void 1 2 Weight Measurement Method Standing Scale Active Medications Albuterol/Ipratropium (Duoneb -) 1 amp NEB RTID [facility] Last Admin: 04/30/18 07:52 Dose: 1 amp Allopurinol (Zyloprim -) 300 mg PO DAILY [facility] Last Admin: 04/30/18 10:29 Dose: 300 mg Amiodarone HCl (Cordarone -) 200 mg PO BID [facility] Last Admin: 04/30/18 10:29 Dose: 200 mg Apixaban (Eliquis -) 5 mg PO BID [facility] Last Admin: 04/30/18 10:30 Dose: 5 mg Atorvastatin Calcium (Lipitor -) 20 mg PO HS [facility] Last Admin: 04/29/18 21:58 Dose: 20 mg Diltiazem HCl (Cardizem Cd -) 180 mg PO BID [facility] Last Admin: 04/30/18 10:29 Dose: 180 mg Gemfibrozil (Lopid -) 600 mg PO BIDI [facility] Last Admin: 04/30/18 06:09 Dose: 600 mg Glipizide (Glucotrol -) 10 mg PO BIDI [facility] Last Admin: 04/30/18 06:10 Dose: 10 mg Insulin Aspart (Novolog Vial Sliding Scale -) 1 vial SQ TIDAC [facility]; Protocol Last Admin: 04/30/18 06:15 Dose: Not Given Lorazepam (Ativan -) 0.5 mg PO TID PRN PRN Reason: ANXIETY Metoprolol Succinate (Toprol Xl -) 25 mg PO BID [facility] Last Admin: 04/30/18 10:30 Dose: 25 mg Pregabalin (Lyrica -) 50 mg PO BID [facility] Last Admin: 04/30/18 10:29 Dose: 50 mg Sitagliptin Phosphate (Januvia -) 50 mg PO AM [facility] Last Admin: 04/30/18 06:10 Dose: 50 mg Zolpidem Tartrate (Ambien -) 5 mg PO HS PRN Last Admin: 04/30/18 01:14 Dose: 5 mg CBC, BMP 04/28/18 11:13 04/28/18 11:13 Physical Examination Constitutional: Yes: No Distress, Calm, comfortable Cardiovascular: Yes: Pulse Irregular Respiratory: Yes: Diminished at bases Gastrointestinal: Yes: Normal Bowel Sounds, Soft. No: Tenderness Edema: No Neurological: Yes: alert/ awake Imaging - Results Chest X-ray: Image Reviewed (no infiltrate) EKG: Image Reviewed (Rapid Afib) Problem List - Problems (1) Atrial fibrillation with RVR Code(s): I48.91 - UNSPECIFIED ATRIAL FIBRILLATION (2) Diabetes mellitus Code(s): E11.9 - TYPE 2 DIABETES MELLITUS WITHOUT COMPLICATIONS (3) HTN (hypertension) Code(s): I10 - ESSENTIAL (PRIMARY) HYPERTENSION (4) Hyperlipidemia Code(s): E78.5 - HYPERLIPIDEMIA, UNSPECIFIED Assessment/Plan much better rate controlled chart reviewed d/c planning -- likely today if cleared by cardiology f/u in office - 2 weeks P.S. Pts psa 5.4 -- checked in office recently-- Discussed with pt-- Advised to f/u with urology Dr. Hoff
--- NOTE | 2018-04-30 11:48 | PN ---
Progress Note, Physician History of Present Illness: pulmonary alert,no distress,-cp,-sob. - Current Medication List Current Medications: Active Medications Albuterol/Ipratropium (Duoneb -) 1 amp NEB RTID [facility] Last Admin: 04/30/18 07:52 Dose: 1 amp Allopurinol (Zyloprim -) 300 mg PO DAILY [facility] Last Admin: 04/30/18 10:29 Dose: 300 mg Amiodarone HCl (Cordarone -) 200 mg PO BID [facility] Last Admin: 04/30/18 10:29 Dose: 200 mg Apixaban (Eliquis -) 5 mg PO BID [facility] Last Admin: 04/30/18 10:30 Dose: 5 mg Atorvastatin Calcium (Lipitor -) 20 mg PO HS [facility] Last Admin: 04/29/18 21:58 Dose: 20 mg Diltiazem HCl (Cardizem Cd -) 180 mg PO BID [facility] Last Admin: 04/30/18 10:29 Dose: 180 mg Gemfibrozil (Lopid -) 600 mg PO BIDI [facility] Last Admin: 04/30/18 06:09 Dose: 600 mg Glipizide (Glucotrol -) 10 mg PO BIDI [facility] Last Admin: 04/30/18 06:10 Dose: 10 mg Insulin Aspart (Novolog Vial Sliding Scale -) 1 vial SQ TIDAC [facility]; Protocol Last Admin: 04/30/18 06:15 Dose: Not Given Lorazepam (Ativan -) 0.5 mg PO TID PRN PRN Reason: ANXIETY Metoprolol Succinate (Toprol Xl -) 25 mg PO BID [facility] Last Admin: 04/30/18 10:30 Dose: 25 mg Pregabalin (Lyrica -) 50 mg PO BID [facility] Last Admin: 04/30/18 10:29 Dose: 50 mg Sitagliptin Phosphate (Januvia -) 50 mg PO AM [facility] Last Admin: 04/30/18 06:10 Dose: 50 mg Zolpidem Tartrate (Ambien -) 5 mg PO HS PRN Last Admin: 04/30/18 01:14 Dose: 5 mg - Objective Vital Signs: Vital Signs Temperature 98.1 F 04/30/18 05:00 Pulse Rate 92 H 04/30/18 05:00 Respiratory Rate 18 04/30/18 08:33 Blood Pressure 118/61 04/30/18 05:00 O2 Sat by Pulse Oximetry (%) 100 04/30/18 08:33 Constitutional: Yes: Well Nourished, Calm Eyes: Yes: WNL HENT: Yes: WNL Neck: Yes: WNL Cardiovascular: Yes: Pulse Irregular, S1, S2 Respiratory: Yes: CTA Bilaterally Gastrointestinal: Yes: Normal Bowel Sounds, Soft Extremities: Yes: WNL Edema: No Assessment/Plan Problem List - Problems (1) Atrial fibrillation with RVR Code(s): I48.91 - UNSPECIFIED ATRIAL FIBRILLATION (2) Lung nodule Code(s): R91.1 - SOLITARY PULMONARY NODULE (3) HTN (hypertension) Code(s): I10 - ESSENTIAL (PRIMARY) HYPERTENSION (4) Diabetes mellitus Code(s): E11.9 - TYPE 2 DIABETES MELLITUS WITHOUT COMPLICATIONS (5) Hyperlipidemia Code(s): E78.5 - HYPERLIPIDEMIA, UNSPECIFIED (6) Obstructive sleep apnea Code(s): G47.33 - OBSTRUCTIVE SLEEP APNEA (ADULT) (PEDIATRIC) Assessment/Plan Atrial Fibrillation with RVR r/o COPD Lung Nodule Obstructive Sleep Apnea HTN DM Hyperlipidemia - rate control per cardiology - continue anticoagulation - inhaled bronchodilators - O2 to keep SpO2 >90% - CPAP at night DR ANTOINE
--- NOTE | 2018-04-30 13:16 | PN ---
Progress Note (short form) - Note Progress Note: 67 year old male admitted with new onset atrial fib. with rapid ventricular response and exertioal dyspnea, NIDDM, peripheral neuropathy. hypertion/HCVD, OSAS, dyslipidemia. No SOB reported, improvement since on Duoneb via nebulizer. persistent atrial fib mostly controlled ventricular response. Active Medications Generic Name Dose Route Start Last Admin Trade Name Freq PRN Reason Stop Dose Admin Albuterol/Ipratropium 1 amp 04/29/18 14:00 04/30/18 07:52 Duoneb - NEB 1 amp RTID [facility] Administration Allopurinol 300 mg 04/29/18 10:00 04/30/18 10:29 Zyloprim - PO 300 mg DAILY [facility] Administration Amiodarone HCl 200 mg 04/28/18 22:00 04/30/18 10:29 Cordarone - PO 200 mg BID [facility] Administration Apixaban 5 mg 04/28/18 22:00 04/30/18 10:30 Eliquis - PO 5 mg BID [facility] Administration Atorvastatin Calcium 20 mg 04/28/18 22:00 04/29/18 21:58 Lipitor - PO 20 mg HS [facility] Administration Diltiazem HCl 180 mg 04/28/18 22:00 04/30/18 10:29 Cardizem Cd - PO 180 mg BID [facility] Administration Gemfibrozil 600 mg 04/28/18 16:30 04/30/18 06:09 Lopid - PO 600 mg BIDI [facility] Administration Glipizide 10 mg 04/29/18 16:30 04/30/18 06:10 Glucotrol - PO 10 mg BIDI [facility] Administration Insulin Aspart 1 vial 04/28/18 16:30 04/30/18 06:15 Novolog Vial Sliding Scale - SQ Not Given TIDAC [facility] Protocol Lorazepam 0.5 mg 04/28/18 12:44 Ativan - PO TID PRN ANXIETY Metoprolol Succinate 25 mg 04/29/18 10:00 04/30/18 10:30 Toprol Xl - PO 25 mg BID [facility] Administration Pregabalin 50 mg 04/28/18 22:00 04/30/18 10:29 Lyrica - PO 50 mg BID [facility] Administration Sitagliptin Phosphate 50 mg 04/30/18 07:00 04/30/18 06:10 Januvia - PO 50 mg AM [facility] Administration Zolpidem Tartrate 5 mg 04/28/18 13:03 04/30/18 01:14 Ambien - PO 5 mg HS PRN Administration Last Vital Signs Temp Pulse Resp BP Pulse Ox 98.1 F 92 H 18 118/61 100 04/30/18 05:00 04/30/18 05:00 04/30/18 08:33 04/30/18 05:00 04/30/18 08:33 NECK: Supple, no JVD, carotids 2+ HEART: PMI in the 5th space, no heaves or thrills. Heart sounds are distant.No murmur or gallops heard. LUNGS: Clear on auscultation. ABDOMEN: Soft, obese, no organomegaly or palpable masses, dullness on percussion at the flanks. EXTREMETIES: No calf tenderness or dependent edema. Myocardial perfusion Imaging (Lexiscan) out patient 09/01/17 Interpretation summary: Normal Lexiscan myocardial perfusion stress test. Abdominal ultrasound did not reveal any ascites, diffuse fatty liver disease. IMPRESSION: 1. Paroxysmal atrial fib. with rapid ventricular response. 2. Chest pain syndrome, possibly related to rapid ventricular response( demand ischemia). 3. Hypertension. 4. NIDDM. 5. COPD 6. Fatty liver disease. 7. OSAS. Recommendations: 1. Patient could be discharged if medically stable. 2. Completion of the sleep study. 3. Evaluation of fatty liver disease. 4. Cardioversion, if patient does not convert to sinus rhythm in 4 to 6 weeks.
[2018-04-30 14:16] VITALS: BP 131/75; PULSE 109; TEMP 98.3
--- NOTE | 2018-04-30 14:25 | DS ---
Physical Examination Vital Signs: Vital Signs Temperature 98.3 F 04/30/18 14:00 Pulse Rate 109 H 04/30/18 14:00 Respiratory Rate 20 04/30/18 14:00 Blood Pressure 131/75 04/30/18 14:00 O2 Sat by Pulse Oximetry (%) 100 04/30/18 08:33 Findings/Remarks: see today progress note Labs: CBC, BMP 04/28/18 11:13 04/28/18 11:13 Discharge Summary Reason For Visit: ATRIAL FIBRILLATION W RAPID VENTRICULAR RESPONSE Current Active Problems Atrial fibrillation with RVR (Acute) Diabetes mellitus (Acute) HTN (hypertension) (Acute) Hyperlipidemia (Acute) Lung nodule (Acute) Obstructive sleep apnea (Acute) Hospital Course: 67yo male with h/o HTN, DM, hyperlipidemia, CKD, atrial fibrillation on anticoagulation, obstructive 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 Noted to have increased RV pressures on the echo in the office, sent for CTA chest which did not show any evidence of pulmonary emboli. Noted to have irregular rapid rates, now on telemetry for further monitoring. followed by cardiology/ pulmonary meds adjusted echo - done better cleared for d/c meds reconciled f/u in office 2 weeks discussed with nursing staff also. d/c time 30 min in examining/ documenting and coordating care Condition: Improved - Instructions Referrals: Leslie Jacobsen MD [Primary Care Provider] - Disposition: HOME - Home Medications Comprehensive Discharge Medication List: Ambulatory Orders Allopurinol 300 mg PO DAILY 04/28/18 Amiodarone HCl 200 mg PO BID 04/28/18 Apixaban [Eliquis] 5 mg PO BID 04/28/18 Atorvastatin Calcium 20 mg PO DAILY 04/28/18 Cartia Xt 180 mg PO BID 04/28/18 Desvenlafaxine Succinate [Pristiq] 50 mg PO DAILY 04/28/18 Gemfibrozil 600 mg PO BID 04/28/18 Glipizide 10 mg PO BID 04/28/18 LORazepam [Ativan] 0.5 mg PO TID 04/28/18 Pregabalin [Lyrica -] 50 mg PO BID 04/28/18 Sitagliptin Phosphate [Januvia] 50 mg PO DAILY 04/28/18 Zolpidem Tartrate [Ambien] 10 mg PO HS 04/28/18 Albuterol 2.5/Ipratropium 0.5 [Duoneb -] 1 amp NEB RTID amp 04/30/18 Metoprolol Succinate 25 mg PO BID #30 cap 04/30/18
== END 2018-04-30 16:00 | disposition home or self-care (01) | DRG 309 ==
LOC: JER 10:23 → JERBED 12:41 → J4W 17:00
PROVIDERS: ADMIT Internal Medicine; ATTEND Internal Medicine
DX: I48.0 Paroxysmal atrial fibrillation (principal); R18.8 Other ascites; I50.1 Left ventricular failure, unspecified; Z79.01 Long term (current) use of anticoagulants; E78.5 Hyperlipidemia, unspecified; E11.22 Type 2 diabetes mellitus with diabetic chronic kidney disease; I12.9 Hypertensive chronic kidney disease with stage 1 through stage 4 chronic kidney disease, or unspecified chronic kidney disease; N18.9 Chronic kidney disease, unspecified; K21.9 Gastro-esophageal reflux disease without esophagitis; G47.33 Obstructive sleep apnea (adult) (pediatric); M54.5 Low back pain; F41.9 Anxiety disorder, unspecified; F32.9 Major depressive disorder, single episode, unspecified; Z87.891 Personal history of nicotine dependence; Z79.84 Long term (current) use of oral hypoglycemic drugs; R91.1 Solitary pulmonary nodule; E11.42 Type 2 diabetes mellitus with diabetic polyneuropathy; J44.9 Chronic obstructive pulmonary disease, unspecified; K76.0 Fatty (change of) liver, not elsewhere classified
CPT/HCPCS: 36415; 71046-TC-FY; 71275-TC; 76700-TC; 80053; 82550; 82962; 83880; 84439; 84443; 84484; 85025; 90688; 93005; 93010; 93306-TC; 94640; 99285-25; G0008